=== PATIENT | male | born 1965 | race Caucasian/White ===

== ENCOUNTER 2019-06-14 08:35 | Outpatient (CLI) | payer OTHER ==
[2019-06-17] MEDS ORDERED: No Meds at this Time (11:03)
== END 2019-06-14 23:59 | disposition home or self-care (01) ==
LOC: STAR 08:35
PROVIDERS: ATTEND Otolaryngology
DX: Z02.9 Encounter for administrative examinations, unspecified (principal)

== ENCOUNTER 2019-06-22 09:26 | Day surgery (SDC) | payer OTHER ==
[~2019-06-22] VITALS: Ht 170.2 cm; Wt 86.5 kg
[~2019-06-22 09:26] MED LIST: BACITRACIN 50,000 UNIT ONE; BACITRACIN OINT 500U/GM, 15 GM ONE; EPINEPHRINE TOPICAL SOLN 1 MG/ML, 30ML ONE; FLUORESCEIN SODIUM 500 MG/5 ML ONE; LIDOCAINE 1%-EPI 1:100K, 20ML ONE; No Meds at this Time; OXYMETAZOLINE NASAL SPRAY 0.05%, 15ML ONE
[2019-06-22] MEDS ORDERED: LACTATED RINGERS 1,000 ML IV SCH (09:37)
[2019-06-22 09:52] VITALS: BP 151/85
[2019-06-22] MEDS ORDERED: MIDAZOLAM 1 MG/ML, 2ML ONE (11:47)
[2019-06-22] MEDS ORDERED: FENTANYL PF 250 MCG/5ML ONE (11:48)
[2019-06-22] MEDS ORDERED: LABETALOL 5MG/ML, 20ML IV PRN (12:30)
[2019-06-22] MEDS ORDERED: FENTANYL PF 100 MCG/2ML IV PRN (12:30)
[2019-06-22] MEDS ORDERED: HYDROmorphone 2 MG/ML, 1ML IVPush PRN (12:30)
[2019-06-22] MEDS ORDERED: DIAZEPAM 5 MG/ML, 2ML IVPush PRN (12:30)
[2019-06-22] MEDS ORDERED: ACETAMINOPHEN 325 MG TABLET PO PRN (12:30)
[2019-06-22] MEDS ORDERED: PROMETHAZINE 25 MG/ML, 1ML IV PRN (12:30)
[2019-06-22] MEDS ORDERED: KETOROLAC 30 MG/1 ML IV PRN (12:30)
[2019-06-22] MEDS ORDERED: ALBUTEROL SULFATE 2.5 MG/3 ML NPPB PRN (12:30)
[2019-06-22] MEDS ORDERED: hydrALAzine 20 MG/ML, 1ML IV PRN (12:30)
[2019-06-22] MEDS ORDERED: MEPERIDINE/PF 25MG/0.5ML IVPush PRN (12:30)
[2019-06-22] MEDS ORDERED: OXYcodone 5 MG/5 ML ORAL.SOL UDC PO PRN (12:30)
[2019-06-22] MEDS ORDERED: NEOSTIGMINE 1 MG/ML, 10ML ONE (13:13)
[2019-06-22] MEDS ORDERED: ONDANSETRON 2MG/ML, 2ML ONE (13:13)
[2019-06-22] MEDS ORDERED: CEFAZOLIN 1,000 MG ONE (13:13)
[2019-06-22] MEDS ORDERED: ROCURONIUM 10MG/ML,5ML ONE (13:13)
[2019-06-22] MEDS ORDERED: PROPOFOL 10 MG/ML, 20ML ONE (13:13)
[2019-06-22] MEDS ORDERED: GLYCOPYRROLATE 0.2MG/1ML, 5ML ONE (13:13)
[2019-06-22] MEDS ORDERED: DEXAMETHASONE 4 MG/ML, 1ML ONE (13:13)
[2019-06-22] MEDS ORDERED: SUCCINYLCHOLINE 20 MG/ML, 10ML ONE (13:13)
[2019-06-22] MEDS ORDERED: hydrALAzine 20 MG/ML, 1ML ONE (13:22)
[2019-06-22] MEDS ORDERED: FENTANYL PF 100 MCG/2ML ONE (13:22)
[2019-06-22] MEDS ORDERED: OXYcodone 5 MG/5 ML ORAL.SOL UDC ONE (13:52)
== END 2019-06-22 15:45 | disposition home or self-care (01) ==
LOC: OR 09:26
PROVIDERS: ATTEND Otolaryngology
DX: J32.0 Chronic maxillary sinusitis (principal); J32.2 Chronic ethmoidal sinusitis
CPT/HCPCS: 31255; 31267; 87070; 87075; 87102; 87205; 88304; 88305; J0330; J0690; J1100; J2250; J2405; J2704; J2710; J3010; J3490